=== PATIENT | female | born 1965 | race Caucasian/White ===

== ENCOUNTER → 2018-02-16 | Outpatient (CLI) | payer OTHER ==
[~2018-02-16] MED LIST: ACTOS15 MG PO; ALBU17AE23 IH; ALBU4TAB PO; ALBU8.5H2 IH; CETI10TA17 PO; DICL75TA2 PO; FAMO20TA5 PO; FISH OIL 1,2001 EAC1 PO; FLC1T PO; GBPN100C PO; HUMIRA SQ; IPRA3AMP11 INH; MAGN400T6 PO; METF-380 PO; MNTL10T PO; MONT10TA21 PO; MTF500T PO; MTX2.5T PO; NAPR220T29 PO; NFMET1000; NFPRILOC40 PO; OMEG-90 PO; OMEP20CA12 PO; PRM25T PO; SULF1TAB38 PO; VALS1TAB48 PO; VIT1TABL57 PO
--- NOTE | 2018-02-16 09:53 | Diagnostic Imaging Report ---
PROCEDURE: MR imaging of the brain without contrast. TECHNIQUE: Multiplanar, multisequence MR imaging of the brain was performed without contrast. INDICATION: Headaches. Dizziness. COMPARISON: None. FINDINGS: Examination limited by motion artifact. Minimal nonspecific T2 hyperintensities in the supratentorial white matter. No restricted water diffusion or hemosiderin deposition. Morphology is grossly unremarkable including the major midline structures, sella, posterior fossa and cerebellar pontine angle. No hydrocephalus or extra-axial fluid collections. Normal intracranial flow voids. The orbits are unremarkable on this nondedicated exam. Complete opacification of the left maxillary sinus. Large amount of fluid throughout the right mastoid air cells. Left mastoid is clear. Normal bone marrow signal. IMPRESSION: 1. No acute intracranial MRI findings. There are only minimal nonspecific T2 hyperintensities in the supratentorial white matter of doubtful clinical significance. 2. Complete opacification of the left maxillary sinus. 3. Large right mastoid effusion. Dictated by: Dictated on workstation # [id number]
== END ==
LOC: RAD 08:33
PROVIDERS: ATTEND Family Medicine
DX: J34.89 Other specified disorders of nose and nasal sinuses (principal); H74.8X3 Other specified disorders of middle ear and mastoid, bilateral
CPT/HCPCS: 70551

== ENCOUNTER → 2018-04-17 | Outpatient (CLI) | payer OTHER ==
[~2018-04-17] MED LIST changes: +RT-ALBUTEROL SULF 2.5 MG/3 ML PRE-MIX VIAL INH ONE
== END ==
LOC: RT 11:16
PROVIDERS: ATTEND Nurse Practitioner Family
DX: R06.02 Shortness of breath (principal); Z72.0 Tobacco use
CPT/HCPCS: 94060; 94726; 94729

== ENCOUNTER 2018-04-22 07:15 | Outpatient (CLI) | payer OTHER ==
[~2018-04-22 07:15] MED LIST changes: -RT-ALBUTEROL SULF 2.5 MG/3 ML PRE-MIX VIAL INH ONE
== END 2018-04-22 16:23 | disposition home or self-care (01) ==
LOC: SLEEP 07:15
PROVIDERS: ATTEND Nurse Practitioner Family
DX: G47.33 Obstructive sleep apnea (adult) (pediatric) (principal); R09.02 Hypoxemia; G47.10 Hypersomnia, unspecified; G47.34 Idiopathic sleep related nonobstructive alveolar hypoventilation; E66.01 Morbid (severe) obesity due to excess calories
CPT/HCPCS: 95811

== ENCOUNTER → 2018-06-11 | Outpatient (CLI) | payer OTHER ==
--- NOTE | 2018-06-12 13:58 | Diagnostic Imaging Report ---
Exam: Nuclear medicine thyroid imaging and uptake. Date: June 12, 2018. Indication: Thyroid nodules. Comparison: CT chest September 23, 2010. No additional comparison imaging available. Findings: 206 ?Ci of I-123 was administered. Subsequent scintigraphic images of the thyroid were obtained in multiple projections. 6 and 24-hour thyroid uptake rise were obtained. 4 hour thyroid uptake is calculated at 6.7%. 24-hour thyroid uptake is calculated at 24.6%. Normal range for uptake at 4-6 hours (5-20%). Normal range of uptake at 24 hours (10-35%). In the inferior aspect of the right lobe of the thyroid on the SOLANO projection, there is a probable cold nodule. There is no evidence of iodine avid hot nodule specifically to suggest a benign thyroid nodule. Impression: 1. Probable cold nodule within the inferior aspect of the right lobe of the thyroid. Correlation with current dedicated thyroid ultrasound is needed. If there is an indeterminant or suspicious right thyroid nodule at this location, ultrasound-guided fine-needle aspiration would be recommended. 2. No iodine avid hot nodule to specifically suggest a benign thyroid nodule. 3. Normal thyroid uptake values. Dictated on workstation # [id number]
== END ==
LOC: CARD 10:48
PROVIDERS: ATTEND Otolaryngology Otolaryngology/Facial Plastic Surgery
DX: E04.1 Nontoxic single thyroid nodule (principal)
CPT/HCPCS: 78014

== ENCOUNTER → 2018-06-25 | Day surgery (SDC) | payer OTHER ==
[~2018-06-25] VITALS: Ht 172.7 cm; Wt 139.7 kg
[2018-06-25] VITALS (10 sets, daily range): BP systolic 107–146; BP diastolic 53–83
[~2018-06-25] MED LIST changes: +AMLO2.5T3 PO; +ASPI-999 PO; +CHOL200059 PO; +FAMO20TA3 PO; +FERR-65 PO; +FLUO40CA12 PO; +FLUT1BLS3 IH; +FOLI1TAB24 PO; +FURO40TA4 PO; +GABA-486 PO; +GLIM1TAB PO; +GUAI600T43 PO; +HEParin (CATH LAB) 2,000 ML IV ONE; +IXEK80AU SQ; +LIDOCAINE 1% INJ 20 ML 20 ML VIAL ONE; +METH2.5T PO; +METO-370 PO; +MIDAZOLAM 5 MG/5 ML (VERSED) VIAL ONE; +MOME17SP9 NS; +NS IV 1000 ML 1,000 ML IV SCH; +NS IV 1000 ML 1,000 ML ONE; +OMEP20TA7 PO; +PATIENT MAY USE OWN MEDS, ALL PO SCH; +PIOG15TA67 PO; +POTA10CA43 PO; +RT-ALBUINH INH; +fentaNYL INJECTION 100 MCG/2 ML AMP ONE
--- OUTSIDE RECORDS SUMMARY | 2018-06-25 11:26 | XMS REPORT | Continuity of Care Document ---
Author Author [facility] Organization [facility] Address Unknown Phone Unavailable Allergies Active Description Code Type Severity Reaction Onset Reported/Identified Relationship to Patient Clinical Status Yes LISINOPRIL UNKNOWN UNKNOWN Yes OTHER UNKNOWN UNKNOWN Yes ZOCOR UNKNOWN UNKNOWN Yes ENVIROMENTAL ENVIROMENTAL Unknown N/A 01/31/2010 Yes lisinopril [id number] Drug Allergy Unknown N/A 01/31/2010 Yes OKRA OKRA Unknown N/A 01/31/2010 Yes simvastatin [id number] Drug Allergy Unknown N/A 01/31/2010 Yes Tetanus Vaccines Toxoid [id number] Drug Allergy Unknown N/A 01/31/2010 Yes Tetanus Vaccines and Toxoid [id number] Drug Allergy Unknown N/A 2009 Yes fenofibrate [id number] Drug Allergy Unknown N/A 09/10/2013 Yes rosuvastatin [id number] Drug Allergy Unknown N/A 09/10/2013 Yes TETNUS TETNUS Unknown N/A 09/10/2013 Medications There is no data. Problems Date Dx Coded Attending Type Code Diagnosis Diagnosed By 09/11/2013 ZAINAB HICKS MD Ot 285.9 ANEMIA NOS 09/11/2013 ZAINAB HICKS MD Ot 530.11 REFLUX ESOPHAGITIS 09/11/2013 ZAINAB HICKS MD Ot V16.0 FAMILY HX-GI MALIGNANCY 12/02/2014 SOL DOBSON DO Ot 780.50 SLEEP DISTURBANCE NOS 12/02/2014 SOL DOBSON DO Ot 786.09 RESPIRATORY ABNORM NEC 12/31/2014 SOL DOBSON DO Ot 278.01 12/31/2014 SOL DOBSON DO Ot 305.1 12/31/2014 SOL DOBSON DO Ot 401.9 12/31/2014 SOL DOBSON DO Ot 496 12/31/2014 SOL DOBSON DO Ot 780.54 12/31/2014 OLYA JAMIL, SOL M Ot 786.09 03/11/2015 FABIOLA DRAPER, ZAINAB Marcos Ot V72.84 03/11/2015 OLYA DO, SOL M Ot 278.01 03/11/2015 OLYA DO, SOL M Ot 305.1 03/11/2015 OLYA DO, SOL M Ot 401.9 03/11/2015 STANTON DOBSON DOSON M Ot 496 03/11/2015 OLYA DO, SLO M Ot 780.54 03/11/2015 OLYA DO, SOL M Ot 786.09 03/26/2015 MI DRAPER, GOLDIE A Ot 250.02 03/26/2015 MI DRAPER, GOLDIE A Ot 285.9 03/26/2015 MI DRAPER, GOLDIE A Ot 401.1 03/26/2015 MI DRAPER, GOLDIE A Ot 721.3 03/26/2015 MI DRAPER, GOLDIE A Ot 722.4 04/16/2015 MI DRAPER, GOLDIE A Ot 721.3 09/10/2015 FABIOLA DRAPER, ZAINAB Marcos Ot V72.84 09/10/2015 OLYA JAMIL SOL M Ot 278.01 09/10/2015 OLYA JAMIL SOL M Ot 305.1 09/10/2015 OLYA JAMIL SOL M Ot 401.9 09/10/2015 OLYA JAMIL SOL M Ot 496 09/10/2015 OLYA JAMIL SOL M Ot 780.54 09/10/2015 OLYA JAMIL SOL M Ot 786.09 09/10/2015 MI DRAPER, GOLDIE A Ot 250.02 09/10/2015 MI DRAPER, GOLDIE A Ot 285.9 09/10/2015 MI DRAPER, GOLDIE A Ot 401.1 09/10/2015 MI DRAPER, GOLDIE A Ot 721.3 09/10/2015 MI DRAPER, GOLDIE A Ot 722.4 09/14/2015 FABIOLA DRAPER, ZAINAB Marcos Ot V72.84 09/14/2015 STANTON DOBSON DOSON M Ot 278.01 09/14/2015 OLYA JAMIL, SOL M Ot 305.1 09/14/2015 STANTON DOBSON DOSON M Ot 401.9 09/14/2015 STANTON DOBSON DOSON M Ot 496 09/14/2015 OLYA SOL Grimaldo Ot 780.54 09/14/2015 OLYA JAMIL SOL Grimaldo Ot 786.09 09/14/2015 MI DRAPER, GOLDIE A Ot 250.02 09/14/2015 MI DRAPER, GOLDIE A Ot 285.9 09/14/2015 MI DRAPER, GOLDIE A Ot 401.1 09/14/2015 MI DRAPER, GOLDIE A Ot 721.3 09/14/2015 MI DRAPER, GOLDIE A Ot 722.4 09/14/2015 MI DRAPER, GOLDIE A Ot 721.3 09/17/2015 POLO DRAPER FACC, ALI FACP CCDS Ot E11.9 09/17/2015 POLO DRAPER FACC, ALI FACP CCDS Ot I10 09/17/2015 POLO DRAPER FACC, ALI FACP CCDS Ot J43.8 09/17/2015 POLO DRAPER FACC, ALI FACP CCDS Ot M79.89 09/17/2015 POLO DRAPER FACC, ALI FACP CCDS Ot R06.02 09/17/2015 POLO DRAPER FACC, ALI FACP CCDS Ot Z72.0 09/17/2015 FABIOLA DRAPER, ZAINAB Marcos Ot V72.84 09/17/2015 OLYA JAMIL SOL Grimaldo Ot 278.01 09/17/2015 OLYA JAMIL SOL Grimaldo Ot 305.1 09/17/2015 OLYA JAMIL SOL Grimaldo Ot 401.9 09/17/2015 OLYA JAMIL SOL Grimaldo Ot 496 09/17/2015 OLYA JAMIL SOL Grimaldo Ot 780.54 09/17/2015 OLYA JAMIL SOL Dillan Ot 786.09 09/17/2015 MI DRAPER, GOLDIE A Ot 250.02 09/17/2015 MI DRAPER, GOLDIE A Ot 285.9 09/17/2015 MI DRAPER, GOLDIE A Ot 401.1 09/17/2015 MI DRAPER, GOLDIE A Ot 721.3 09/17/2015 MI DRAPER, GOLDIE A Ot 722.4 09/17/2015 POLO DRAPER FACC, ALI FACP CCDS Ot E11.9 09/17/2015 POLO DRAPER FACC, ALI FACP CCDS Ot I10 09/17/2015 POLO MD FACC, ALI FACP CCDS Ot J43.8 09/17/2015 POLO DRAPER FACC, ORALIA FACP CCDS Ot M79.89 09/17/2015 POLO DRAPER FACC, ORALIA FACP CCDS Ot R06.02 09/17/2015 POLO DRAPER FACC, ORALIA FACP CCDS Ot Z72.0 11/23/2015 FABIOLA DRAPER, ZAINAB Marcos Ot V72.84 EXAM PRE-OPERATIVE NOS 11/23/2015 SOL DOBSON DO Ot 278.01 MORBID OBESITY 11/23/2015 SOL DOBSON DO Ot 305.1 TOBACCO USE DISORDER 11/23/2015 SOL DOBSON DO Ot 401.9 HYPERTENSION NOS 11/23/2015 SOL DOBSON DO Ot 496 CHR AIRWAY OBSTRUCT NEC 11/23/2015 SOL DOBSON DO Ot 780.54 HYPERSOMNIA, UNSPECIFIED 11/23/2015 SOL DOBSON DO Ot 786.09 RESPIRATORY ABNORM NEC 11/23/2015 GOLDIE STARK MD Ot 250.02 DIAB MALLORY WO COMPL, TYPE II OR UNSPEC TY 11/23/2015 GOLDIE STARK MD Ot 285.9 ANEMIA NOS 11/23/2015 GOLDIE STARK MD Ot 401.1 BENIGN HYPERTENSION 11/23/2015 GOLDIE STARK MD Ot 721.3 LUMBOSACRAL SPONDYLOSIS 11/23/2015 GOLDIE STARK MD Ot 722.4 CERVICAL DISC DEGEN 11/23/2015 POLO DRAPER FACC, ORALIA FACP CCDS Ot E11.9 TYPE 2 DIABETES MELLITUS WITHOUT COMPLIC 11/23/2015 POLO DRAPER FACC, ORALIA FACP CCDS Ot I10 ESSENTIAL (PRIMARY) HYPERTENSION 11/23/2015 POLO DRAPER FACC, ORALIA FACP CCDS Ot J43.8 OTHER EMPHYSEMA 11/23/2015 POLO DRAPER FACC, ORALIA FACP CCDS Ot M79.89 OTHER SPECIFIED SOFT TISSUE DISORDERS 11/23/2015 POLO DRAPER FACC, ORALIA FACP CCDS Ot R06.02 SHORTNESS OF BREATH 11/23/2015 POLO DRAPER FACC, ORALIA FACP CCDS Ot Z72.0 TOBACCO USE 11/23/2015 GOLDIE STARK MD Ot 721.3 LUMBOSACRAL SPONDYLOSIS 11/23/2015 POLO DRAPER FACC, ORALIA FACP CCDS Ot E11.9 TYPE 2 DIABETES MELLITUS WITHOUT COMPLIC 11/23/2015 POLO DRAPER FACMellisa, ORALIA FACP CCDS Ot I10 ESSENTIAL (PRIMARY) HYPERTENSION 11/23/2015 POLO DRAPER FACC, ORALIA FACP CCDS Ot J43.8 OTHER EMPHYSEMA 11/23/2015 POLO DRAPER FACC, ORALIA FACP CCDS Ot M79.89 OTHER SPECIFIED SOFT TISSUE DISORDERS 11/23/2015 POLO DRAPER FACC, ORALIA FACP CCDS Ot R06.02 SHORTNESS OF BREATH 11/23/2015 POLO DRAPER FACC, ORALIA FACP CCDS Ot Z72.0 TOBACCO USE 11/25/2015 FABIOLA DRAPER, ZAINAB S Ot V72.84 EXAM PRE-OPERATIVE NOS 11/25/2015 SOL DOBSON DO Ot 278.01 MORBID OBESITY 11/25/2015 SOL DOBSON DO Ot 305.1 TOBACCO USE DISORDER 11/25/2015 SOL DOBSON DO Ot 401.9 HYPERTENSION NOS 11/25/2015 SOL DOBSON DO Ot 496 CHR AIRWAY OBSTRUCT NEC 11/25/2015 SOL DOBSON DO Ot 780.54 HYPERSOMNIA, UNSPECIFIED 11/25/2015 SOL DOBSON DO Ot 786.09 RESPIRATORY ABNORM NEC 11/25/2015 GOLDIE STARK MD Ot 250.02 DIAB MALLORY WO COMPL, TYPE II OR UNSPEC TY 11/25/2015 GOLDIE STARK MD Ot 285.9 ANEMIA NOS 11/25/2015 GOLDIE STARK MD Ot 401.1 BENIGN HYPERTENSION 11/25/2015 GOLDIE STARK MD Ot 721.3 LUMBOSACRAL SPONDYLOSIS 11/25/2015 GOLDIE STARK MD Ot 722.4 CERVICAL DISC DEGEN 11/25/2015 GOLDIE STARK MD Ot 721.3 LUMBOSACRAL SPONDYLOSIS 11/25/2015 POLO DRAPER FACC, ORALIA GALICIAP CCDS Ot E11.9 TYPE 2 DIABETES MELLITUS WITHOUT COMPLIC 11/25/2015 POLO DRAPER FACC, ORALIA FACP CCDS Ot I10 ESSENTIAL (PRIMARY) HYPERTENSION 11/25/2015 POLO DRAPER FACC, ORALIA FACP CCDS Ot J43.8 OTHER EMPHYSEMA 11/25/2015 POLO DRAPER FACC, ORALIA FACP CCDS Ot M79.89 OTHER SPECIFIED SOFT TISSUE DISORDERS 11/25/2015 POLO DRAPER [facility], ALI FACP CCDS Ot R06.02 SHORTNESS OF BREATH 11/25/2015 POLO DRAPER [facility], ALI FACP CCDS Ot Z72.0 TOBACCO USE 11/25/2015 POLO DRAPER [facility], ALI FACP CCDS Ot E11.9 TYPE 2 DIABETES MELLITUS WITHOUT COMPLIC 11/25/2015 POLO DRAPER FAC, ALI FACP CCDS Ot I10 ESSENTIAL (PRIMARY) HYPERTENSION 11/25/2015 POLO DRAPER [facility], ALI FACP CCDS Ot J43.8 OTHER EMPHYSEMA 11/25/2015 POLO DRAPER [facility], ALI FACP CCDS Ot M79.89 OTHER SPECIFIED SOFT TISSUE DISORDERS 11/25/2015 POLO DRAPER [facility], ALI FACP CCDS Ot R06.02 SHORTNESS OF BREATH 11/25/2015 POLO DRAPER [facility], ALI FACP CCDS Ot Z72.0 TOBACCO USE 01/09/2018 Goldie Stark 250.80 DIABETES MELLITUS WITH OTHER SPECIFIED MANIFESTATIONS, TYPE II OR UNSPECIFIED TYPE, NOT STATED UNCONTROLLED 01/09/2018 Goldie Stark 780.79 OTHER MALAISE AND FATIGUE 01/09/2018 Goldie Stark E11.65 TYPE 2 DIABETES MELLITUS WITH HYPERGLYCEMIA 01/09/2018 Goldie Stark R53.83 OTHER FATIGUE 01/09/2018 Goldie Stark 250.80 DIABETES MELLITUS WITH OTHER SPECIFIED MANIFESTATIONS, TYPE II OR UNSPECIFIED TYPE, NOT STATED UNCONTROLLED 01/09/2018 Goldie Stark 719.46 PAIN IN JOINT INVOLVING LOWER LEG 01/09/2018 Goldie Stark 780.79 OTHER MALAISE AND FATIGUE 01/09/2018 Goldie Stark E11.65 TYPE 2 DIABETES MELLITUS WITH HYPERGLYCEMIA 01/09/2018 Goldie Stark M25.561 PAIN IN RIGHT KNEE 01/09/2018 Goldie Stark R53.83 OTHER FATIGUE 01/09/2018 Goldie Stark 250.80 DIABETES MELLITUS WITH OTHER SPECIFIED MANIFESTATIONS, TYPE II OR UNSPECIFIED TYPE, NOT STATED UNCONTROLLED 01/09/2018 Goldie Stark 719.46 PAIN IN JOINT INVOLVING LOWER LEG 01/09/2018 Goldie Stark 780.79 OTHER MALAISE AND FATIGUE 01/09/2018 Mi, Goldie W E11.65 TYPE 2 DIABETES MELLITUS WITH HYPERGLYCEMIA 01/09/2018 MiGoldie W M25.561 PAIN IN RIGHT KNEE 01/09/2018 Mi Goldie W R53.83 OTHER FATIGUE 01/31/2018 FABIOLA DRAPER, ZAINAB Marcos Ot V72.84 EXAM PRE-OPERATIVE NOS 01/31/2018 SOL DOBSON DO Ot 278.01 MORBID OBESITY 01/31/2018 SOL DOBSON DO Ot 305.1 TOBACCO USE DISORDER 01/31/2018 SOL DOBSON DO Ot 401.9 HYPERTENSION NOS 01/31/2018 SOL DOBSON DO Ot 496 CHR AIRWAY OBSTRUCT NEC 01/31/2018 SOL DOBSON DO Ot 780.54 HYPERSOMNIA, UNSPECIFIED 01/31/2018 SOL DOBSON DO Ot 786.09 RESPIRATORY ABNORM NEC 01/31/2018 GOLDIE STARK MD Ot 250.02 DIAB MALLORY WO COMPL, TYPE II OR UNSPEC TY 01/31/2018 GOLDIE STARK MD Ot 285.9 ANEMIA NOS 01/31/2018 GOLDIE STARK MD Ot 401.1 BENIGN HYPERTENSION 01/31/2018 GOLDIE STARK MD Ot 721.3 LUMBOSACRAL SPONDYLOSIS 01/31/2018 GOLDIE STARK MD Ot 722.4 CERVICAL DISC DEGEN 01/31/2018 POLO DRAPER FACC, ORALIA FACP CCDS Ot E11.9 TYPE 2 DIABETES MELLITUS WITHOUT COMPLIC 01/31/2018 POLO DRAPER FACC, ALI FACP CCDS Ot I10 ESSENTIAL (PRIMARY) HYPERTENSION 01/31/2018 POLO DRAPER FACC, ALI FACP CCDS Ot J43.8 OTHER EMPHYSEMA 01/31/2018 POLO DRAPER FACC, ALI FACP CCDS Ot M79.89 OTHER SPECIFIED SOFT TISSUE DISORDERS 01/31/2018 POLO DRAPER FACC, ALI FACP CCDS Ot R06.02 SHORTNESS OF BREATH 01/31/2018 POLO DRAPER FACC, ALI FACP CCDS Ot Z72.0 TOBACCO USE 02/16/2018 ZAINAB HICKS MD Ot V72.84 EXAM PRE-OPERATIVE NOS 02/16/2018 SOL DOBSON DO Ot 278.01 MORBID OBESITY 02/16/2018 SOL DOBSON DO Ot 305.1 TOBACCO USE DISORDER 02/16/2018 SOL DOBSON DO Ot 401.9 HYPERTENSION NOS 02/16/2018 OLYA JAMIL SOL M Ot 496 CHR AIRWAY OBSTRUCT NEC 02/16/2018 SOL DOBSON DO Ot 780.54 HYPERSOMNIA, UNSPECIFIED 02/16/2018 OLYA JAMIL SOL Dillan Ot 786.09 RESPIRATORY ABNORM NEC 02/16/2018 GOLDIE STARK MD Ot 250.02 DIAB MALLORY WO COMPL, TYPE II OR UNSPEC TY 02/16/2018 GOLDIE STARK MD Ot 285.9 ANEMIA NOS 02/16/2018 GOLDIE STARK MD Ot 401.1 BENIGN HYPERTENSION 02/16/2018 GOLDIE STARK MD Ot 721.3 LUMBOSACRAL SPONDYLOSIS 02/16/2018 GOLDIE STARK MD Ot 722.4 CERVICAL DISC DEGEN 02/16/2018 POLO DRAPER FACC, ALI FACP CCDS Ot E11.9 TYPE 2 DIABETES MELLITUS WITHOUT COMPLIC 02/16/2018 POLO DRAPER FACC, ALI FACP CCDS Ot I10 ESSENTIAL (PRIMARY) HYPERTENSION 02/16/2018 POLO DRAPER FACC, ALI FACP CCDS Ot J43.8 OTHER EMPHYSEMA 02/16/2018 POLO DRAPER FACC, ALI FACP CCDS Ot M79.89 OTHER SPECIFIED SOFT TISSUE DISORDERS 02/16/2018 POLO DRAPER FACC, ALI FACP CCDS Ot R06.02 SHORTNESS OF BREATH 02/16/2018 POLO DRAPER FACC, ALI FACP CCDS Ot Z72.0 TOBACCO USE 02/16/2018 GOLDIE STARK MD Ot 721.3 LUMBOSACRAL SPONDYLOSIS 02/16/2018 POLO DRAPER FACC, ALI FACP CCDS Ot E11.9 TYPE 2 DIABETES MELLITUS WITHOUT COMPLIC 02/16/2018 POLO DRAPER FACC, ALI FACP CCDS Ot I10 ESSENTIAL (PRIMARY) HYPERTENSION 02/16/2018 POLO DRAPER FACC, ALI FACP CCDS Ot J43.8 OTHER EMPHYSEMA 02/16/2018 POLO DRAPER FACC, ALI FACP CCDS Ot M79.89 OTHER SPECIFIED SOFT TISSUE DISORDERS 02/16/2018 POLO GALICIAC, ALI FACP CCDS Ot R06.02 SHORTNESS OF BREATH 02/16/2018 POLO DRAPER FACC, ALI FACP CCDS Ot Z72.0 TOBACCO USE 02/18/2018 GOLDIE STARK MD A Ot H74.8X3 OTH DISRD OF MIDDLE EAR AND MASTOID, RICKY 02/18/2018 MI DRAPER, GOLDIE Guerrero Ot J34.89 OTHER SPECIFIED DISORDERS OF NOSE AND NA 04/19/2018 EN RAHMAN APRN Ot R06.02 SHORTNESS OF BREATH 04/19/2018 EN RAHMAN APRN Ot Z72.0 TOBACCO USE 04/24/2018 EN RAHMAN APRN Ot E66.01 MORBID (SEVERE) OBESITY DUE TO EXCESS CA 04/24/2018 EN RAHMAN DIRECTOR ORANGE Ot G47.10 HYPERSOMNIA, UNSPECIFIED 04/24/2018 EN RAHMAN APRN Ot G47.33 OBSTRUCTIVE SLEEP APNEA (ADULT) (PEDIATR 04/24/2018 EN RAHMAN APRN Ot G47.34 IDIO SLEEP RELATED NONOBSTRUCTIVE ALVEOL 04/24/2018 EN RAHMAN APRN Ot R09.02 HYPOXEMIA 04/29/2018 EN RAHMAN APRN Ot R06.02 SHORTNESS OF BREATH 04/29/2018 EN RAHMAN APRN Ot Z72.0 TOBACCO USE 06/12/2018 MAGDALENO DRAPER, HOMA Acosta Ot E04.1 NONTOXIC SINGLE THYROID NODULE Procedures There is no data. Results Test Result Range Hepatic Panel - 06/13/16 08:30 Albumin 4.2 g/dL 3.6-5.1 ALP 69 U/L 35-130 ALT 28 U/L 6-45 AST 17 U/L 2-40 DBil 0.1 mg/dL 0.0-0.2 GGT 35 U/L 5-40 Globulin 2.5 g/dL 2.3-3.5 TBil 0.2 mg/dL 0.2-1.2 TP 6.7 g/dL 6.0-8.3 Lipid Panel - 08/16/16 11:30 C/HDL 4.1 3.7-6.7 Cholesterol 203 mg/dL 100-240 HDL 49 mg/dL 30-85 LDL-Calculated 98 mg/dL 0-100 Trig 279 mg/dL 35-160 VLDL 56 mg/dL 0-42 Microalbumin - 08/16/16 11:30 Microalb 475.0 mg/L 0.0-20.0 Microalbumin - 02/28/17 11:28 Microalb 918.0 mg/L 0.0-20.0 BMP - 01/09/18 09:32 Anion Gap 20 6-14 BUN 16 mg/dL 5-25 Calcium 9.7 mg/dL 8.3-10.4 Chloride 101 mmol/L 95-114 CO2 25 mEq/L 22-33 Creat 0.78 mg/dL 0.50-1.50 eGFR 77 mL/min/1.73m2 >59 Glucose 182 mg/dL 70-110 Osmo 296 280-295 Potassium 4.5 mmol/L 3.5-5.3 Sodium 141 mmol/L 134-[address] Spotted Fev,IgG - 01/09/18 09:37 RMSF, IGG, EIA NEGATIVE NEGATIVE Ehrlichia Ab Panel - 01/09/18 09:37 E. CHAFFEENSIS (HME) IGG TITER NEGATIVE NEG:<1:64 E. CHAFFEENSIS (HME) IGM TITER NEGATIVE NEG:<1:20 HGE IGG TITER NEGATIVE NEG:<1:64 HGE IGM TITER NEGATIVE NEG:<1:20 Ehrlichia Ab Panel - 01/09/18 09:37 E. chaffeensis (HME) IgG Titer Negative Neg:<1:64 E. chaffeensis (HME) IgM Titer Negative Neg:<1:20 HGE IgG Titer Negative Neg:<1:64 HGE IgM Titer Negative Neg:<1:20 Am[address] Spotted Fev, IgG, Qn - 01/09/18 09:37 RMSF, IgG, EIA Negative Negative Amilcar Azn Spotted Fever, IgM - 01/09/18 09:37 Amilcar Azn Spotted Fever, IgM 0.08 index 0.00-0.89 Sed Rate - 01/30/18 15:16 Sed Rate 13 mm/hr 9-15 Free T4 - 06/04/18 10:56 Free T4 1.16 ng/dL 0.81-1.61 Thyroid Peroxidase (TPO) Ab - 06/04/18 10:56 THYROID PEROXIDASE (TPO) AB 13 IU/ML 0-34 Thyroid Stim Immunoglobulin - 06/04/18 10:56 THYROID STIM IMMUNOGLOBULIN <0.10 IU/L 0.00-0.55 Thyroid Stim Immunoglobulin - 06/04/18 10:56 Thyroid Stim Immunoglobulin <0.10 IU/L 0.00-0.55 Thyroid Peroxidase (TPO) Ab - 06/04/18 10:56 Thyroid Peroxidase (TPO) Ab 13 IU/mL 0-34 Encounters ACCT No. Visit Date/Time Discharge Status Pt. Type Provider Facility Loc./Unit Complaint [id number] 06/12/2018 11:00:00 06/12/2018 23:59:59 CLS Preadmit HOMA CASTRO MD [facility] CARD [id number] 06/11/2018 10:48:00 06/11/2018 23:59:59 CLS Outpatient HOMA CASTRO MD [facility] CARD MULTIPLE NODULES [id number] 04/22/2018 07:15:00 04/22/2018 16:23:00 DIS Outpatient EN RAHMAN APRN [facility] SLEEP G47.9 SLEEP DISORDER [id number] 04/17/2018 11:16:00 04/17/2018 23:59:59 CLS Outpatient EN RAHMAN APRN [facility] RT SOB R06.02 [id number] 02/16/2018 08:33:00 02/16/2018 23:59:59 CLS Outpatient GOLDIE STARK MD [facility] RAD FREQUENT ASHBY'S [id number] 09/16/2015 14:33:00 09/16/2015 23:59:59 CLS Outpatient ORALIA CUELLAR MD, FACC, FACP CCDS [facility] CARD SHORTNESS OF BREATH,HTN [id number] 09/14/2015 11:35:00 09/14/2015 23:59:59 CLS Outpatient ORALIA CUELLAR MD, FACC, FACP CCDS [facility] CARD SHORTNESS OF BREATH,HTN [id number] 03/30/2015 10:20:00 03/30/2015 23:59:59 CLS Outpatient GOLDIE STARK MD [facility] RAD LBP,F/U UTI [id number] 03/11/2015 10:32:00 03/11/2015 23:59:59 CLS Outpatient GOLDIE STARK MD [facility] RAD DM,HTN,ANEMIA,LBP/ARM PAIN [id number] 12/09/2014 08:10:00 12/09/2014 23:59:59 CLS Outpatient SOL DOBSON DO [facility] RT COPD [id number] 12/02/2014 07:59:00 12/02/2014 15:35:00 DIS Outpatient SOL DOBSON DO [facility] SLEEP VEE,SNORING, CHOKING, GASPING [id number] 09/11/2013 07:40:00 09/11/2013 10:35:00 DIS Outpatient ZAINAB HICKS MD [facility] SDC ANEMIA [id number] 09/10/2013 07:36:00 09/10/2013 23:59:59 CLS Outpatient ZAINAB HICKS MD [facility] PREOP ANEMIA [id number] 06/04/2018 10:53:00 06/04/2018 23:59:00 DIS Outpatient Homa Castro [id number] 05/01/2018 10:00:00 05/01/2018 23:59:00 DIS Outpatient Mi Goldie [id number] 01/30/2018 15:09:00 01/30/2018 23:59:00 DIS Outpatient Mi Goldie [id number] 01/12/2018 10:29:00 01/12/2018 23:59:00 DIS Outpatient Mi Goldie [id number] 01/09/2018 09:28:00 01/09/2018 23:59:00 DIS Outpatient Goldie Stark [id number] 02/28/2017 15:00:00 02/28/2017 23:59:00 DIS Outpatient Mi, Goldie [id number] 08/16/2016 12:29:00 08/16/2016 23:59:00 DIS Outpatient Mi, Goldie [id number] 06/13/2016 14:46:00 06/13/2016 23:59:00 DIS Outpatient Raj Reina [id number] 01/22/2018 17:14:00 Document Registration [id number] 06/06/2018 07:19:00 Document Registration [id number] 01/15/2018 03:12:00 Document Registration
[2018-06-25 11:52] LABS: HEMOGLOBIN 13.3 G/DL (11.5-16.0); RED BLOOD COUNT 3.96 10^6/uL (4.35-5.85); RED CELL DISTRIBUTION WIDTH 14.7 % (10.0-14.5); WHITE BLOOD COUNT 9.3 10^3/uL (4.3-11.0)
[2018-06-25 12:07] LABS: INR 0.9 (0.8-1.4); PROTHROMBIN TIME PATIENT 12.1 SEC (12.2-14.7)
[2018-06-25 12:17] LABS: ALANINE AMINOTRANSFERASE 21 U/L (0-55); ALBUMIN 4.3 GM/DL (3.2-4.5); ALKALINE PHOSPHATASE 75 U/L (40-136); BILIRUBIN,TOTAL 0.3 MG/DL (0.1-1.0); BUN/CREATININE RATIO 21; CALCIUM 9.9 MG/DL (8.5-10.1); CARBON DIOXIDE 26 MMOL/L (21-32); CHLORIDE 104 MMOL/L (98-107); CHOLESTEROL 213 MG/DL (< 200); CREATININE SERUM 0.78 MG/DL (0.60-1.30); GFR ESTIMATED > 60; GLUCOSE 116 MG/DL (70-105); HDL CHOLESTEROL 47 MG/DL (40-60); POTASSIUM 4.6 MMOL/L (3.6-5.0); SODIUM 143 MMOL/L (135-145); TOTAL PROTEIN 7.3 GM/DL (6.4-8.2); TRIGLYCERIDES 458 MG/DL (<150)
--- NOTE | 2018-06-25 13:08 | Cardiac Procedure Note-CS/ASA ---
Pre-Procedure Note Pre-Op Procedure Note H&P Reviewed The H&P was reviewed, patient examined and no changes noted. Date H&P Reviewed: Jun 25, 2018 Time H&P Reviewed: 13:08 Conscious Sedation Pre-Proced Time 13:08 ASA Score 3 For ASA 3 and 4: Consider anesthesia and medical clearance. Also, for patients with a history of failed moderate sedation consider anesthesia. Airway Lungs Heart ASA score ASA 1: a normal healthy patient ASA 2: a patient with a mild systemic disease (mid diabetes, controlled hypertension, obesity ASA 3: a patient with a severe systemic disease that limits activity (angina , COPD, prior Myocardial infarction) ASA 4: a patient with an incapacitating disease that is a constant threat to life (CHF, renal failure) ASA 5: a moribund patient not expected to survive 24 hrs. (ruptured aneurysm) ASA 6: a declared brain patient whose organs are being harvested. For emergent operations, add the letter E after the classification Mallampati Classification Grade 3 Sedation Plan Analgesia, Amnesia, Plan communicated to team members, Discussed options with patient/fam, Discussed risks with patient/fam The patient is an appropriate candidate to undergo the planned procedure, sedation, and anesthesia. The patient immediately re-assessed prior to indication. ORALIA CUELLAR MD FACP FAC CCDS Jun 25, 2018 13:08
--- NOTE | 2018-06-25 14:22 | Discharge Inst-Cardiology ---
Discharge Inst-Cardiac Discharge Medications New Medications: Aspirin (Aspirin) 81 Mg Tab.chew 81 MG PO DAILY, #90 TAB 3 Refills Continued Medications: Albuterol Sulfate (Ventolin Hfa) 1 Puff Puff 2 PUFF INH QID PRN for WHEEZING, PUFF 1 PUFF = 90 MCG Amlodipine Besylate (Amlodipine Besylate) 2.5 Mg Tablet 2.5 MG PO DAILY, TAB Cetirizine Hcl (Cetirizine Hcl) 10 Mg Tablet 10 MG PO DAILY Cholecalciferol (Vitamin D3) (Vitamin D-3) 2,000 Unit Tablet 2000 UNIT PO DAILY, TAB Famotidine (Acid Hair Preparer (FAMOTIDINE)) 20 Mg Tablet 20 MG PO BID, TAB Ferrous Sulfate (Feosol) 325 Mg Tablet 325 MG PO DAILY, TAB Fluoxetine HCl (Prozac) 40 Mg Capsule 40 MG PO DAILY, CAP Fluticasone/Umeclidin/Vilanter (Trelegy Ellipta 100-62.5-25) 1 Each Blst.w.dev 1 EACH IH DAILY Folic Acid (Folic Acid) 1 Mg Tablet 1 MG PO DAILY, TAB Furosemide (Furosemide) 40 Mg Tablet 40 MG PO DAILY, TAB Gabapentin (Gabapentin) 100 Mg Capsule 300 MG PO DAILY, CAP Gabapentin (Gabapentin) 100 Mg Capsule 100 MG PO NOON, CAP Gabapentin (Gabapentin) 100 Mg Capsule 300 MG PO HS, CAP Glimepiride (Glimepiride) 1 Mg Tablet 1 MG PO BID, TAB Guaifenesin (Mucinex) 600 Mg Tab.er.12h 600 MG PO Q12H, TAB Ixekizumab (Taltz Autoinjector) 80 Mg/1 Ml Auto.injct 80 MG SQ O2TGVRT, ML Magnesium Oxide (Mag Ox 400) 400 Mg Tablet 1 EACH PO DAILY WITH FOOD, TAB Methotrexate Sodium (Methotrexate) 2.5 Mg Tablet 2.5 MG PO QWEEKLY, TAB Metoprolol Succinate (Metoprolol Succinate) 50 Mg Tab.er.24h 50 MG PO DAILY, TAB Mometasone Furoate (Mometasone Furoate) 17 Gm Depauw.pump 2 SPRAY NS DAILY, ML Omeprazole (Omeprazole) 20 Mg Tablet.dr 20 MG PO DAILY, TAB Pioglitazone HCl (Pioglitazone HCl) 15 Mg Tablet 15 MG PO BID, TAB Potassium Chloride (Potassium Chloride) 10 Meq Capsule.er 10 MEQ PO DAILY, CAP Discontinued Medications: Metformin Hcl (Metformin 1000 Mg) 1,000 Mg Tablet 1 EACH PO BID Metformin Hcl (Metformin 500 Mg) 500 Mg Tablet 1 EACH PO WITH LUNCH Naproxen Sodium (Naproxen) 220 Mg Tablet 220 MG PO BID, TAB Patient Instructions Patient Instructions: Hold metformin in until the evening of 06/27/18, then resume previous home dose Orders-Post D/C & Referrals Pneu Vac Indicated: Yes ORALIA CUELLAR MD FACP FACC CCDS Jun 25, 2018 14:22
--- NOTE | 2018-06-25 14:22 | Discharge Inst-Post CATH ---
Discharge Inst-CATH Post Cardiac Cath D/C Inst Follow Up/Plan F/u with Dr Lazaro in 2 weeks Hold metformin in until the evening of 06/27/18, then resume previous home dose CARDIAC CATH DISCHARGE INSTRUCTIONS *Hold Metformin for 48 hours post heart cath. ACTIVITY * Go Home directly and rest. * Limit activity of the leg (or wrist if it was used) for 7 days including aerobics, swimming, jogging, bicycling, etc. * Restrict stair-climbing for 7 days if possible, if not, climb up with your non -cath leg, then bring together on the same step. * Avoid lifting, pushing, pulling or excessive movement of the affected extremity for 7 days. * Customary sexual activity may be resumed after 2 days-use caution not to use a position that strains or causes pain to the affected extremity. * No driving for 24 hours. * NO SMOKING. * Avoid straining for bowel movements for 7 days. * Gentle walking on level ground is allowed. * Returning to work will depend on the type of procedure and the results. Your doctor will discuss this with you. CALL YOUR DOCTOR FOR ANY OF THE FOLLOWING: *If bleeding from the puncture site occurs- Apply gentle pressure to site with clean cloth and call your doctor or EMS. * If a knot or lump forms under the skin, increases in size, or causes pain. * If bruising appears to be worsening or moving further down your leg instead of disappearing. * Temperature above 101 F. CARE OF YOUR GROIN INCISION; * Bruising or purple discoloration of the skin near the puncture site is common. * You may shower only, no bathtub bathing for 5 days. Be careful to avoid slipping as your leg may feel stiff. * If a closure device was used on your femoral artery, please see the attached guide regarding care of the device and your leg. * Leave the dressing on, until removed by office staff. CARE OF YOUR WRIST INCISION; * Bruising or purple discoloration of the skin near the puncture site is common. * You may shower. * DO NOT submerge wrist. * Leave dressing on, until removed by office staff.. ORALIA LAZARO MD [facility] Jun 25, 2018 14:22
--- NOTE | 2018-06-25 16:43 | CARDIAC CATHETERIZATION ---
DATE OF SERVICE: 06/25/2018 CARDIAC CATHETERIZATION REPORT HISTORY OF PRESENT ILLNESS: The patient is a 53-year-old lady who has multiple coronary artery disease risk factors and has been experiencing increasing shortness of breath and chest discomfort that is suggestive of new onset of angina. Cardiac catheterization was carried out today after having obtained an informed consent. PROCEDURE: She was brought to the cardiac catheterization laboratory in a fasting state. Right groin was prepared and draped in the usual sterile fashion. A 1% lidocaine for local anesthesia. Modified Seldinger technique was used to advance a 5-Urdu sheath in the right femoral artery. Angiography of the right femoral artery was carried out through the sheath. A 5-Urdu JL4 catheter was used for left coronary angiography, 5-Urdu JR4 catheter was used for right coronary angiography. A 5-Urdu pigtail catheter was used for left heart catheterization, left ventricular angiography. Pigtail catheter was pulled back and positioned at the aortic arch. Aortic arch angiography was performed. Pigtail catheter was removed. Mynx was used to achieve hemostasis following sheath removal. She tolerated the procedure well. HEMODYNAMICS: Left ventricular end-diastolic pressure following coronary angiography was 15 mmHg. There was no significant pressure gradient on pullback across the aortic valve. Ascending aortic pressure was 109/63 with a mean of 62 mmHg. CORONARY ANGIOGRAPHY: Diffuse coronary calcification is seen. Left main coronary artery is free of significant disease. Left anterior descending artery has mild to moderate diffuse plaques and calcification. Left circumflex artery is small and nondominant and does not exhibit significant disease. Right coronary artery is large and dominant and has diffuse mild to moderate plaques and mid vessel calcification. LEFT VENTRICULAR ANGIOGRAPHY: Left ventricular angiography was carried out in the right anterior oblique projection. Global left ventricular systolic function is well preserved. Left ventricular ejection fraction approximately 50%. AORTIC ARCH ANGIOGRAPHY: Aortic arch angiography did not indicate any significant thoracic aortic aneurysm or dissection. Neck arteries, to the extent visualized, do not exhibit any significant stenoses. CONCLUSIONS: 1. Mild to moderate diffuse coronary artery disease. 2. Well-preserved global left ventricular systolic function with ejection fraction approximately 50%. 3. Mild elevation of left ventricular end-diastolic pressure. DISCUSSION AND RECOMMENDATIONS: Based on results of the study, it appears appropriate to continue a conservative approach. Risk factor modification is advised. Outpatient followup is advised. Job ID: [id number] DocumentID: [id number] Dictated Date: 06/25/2018 13:48:04 Park Warden Date: 06/25/2018 16:42:44 Dictated By: ORALIA CUELLAR MD, MA, FACP, FACC, MTDD
== END | disposition home or self-care (01) ==
LOC: CATH 11:14 → SDC 14:00
PROVIDERS: ATTEND Internal Medicine Cardiovascular Disease
DX: I25.10 Atherosclerotic heart disease of native coronary artery without angina pectoris (principal); J44.9 Chronic obstructive pulmonary disease, unspecified; E11.9 Type 2 diabetes mellitus without complications; G47.10 Hypersomnia, unspecified; I10 Essential (primary) hypertension; R09.02 Hypoxemia; G47.33 Obstructive sleep apnea (adult) (pediatric); R06.83 Snoring; R60.9 Edema, unspecified; Z72.0 Tobacco use; R91.8 Other nonspecific abnormal finding of lung field; L40.50 Arthropathic psoriasis, unspecified
CPT/HCPCS: 36221; 36415; 36430; 80053; 80061; 85027; 85610; 85730; 87081; 93458

== ENCOUNTER → 2018-07-03 | Outpatient (CLI) | payer OTHER ==
[~2018-07-03] MED LIST changes: -HEParin (CATH LAB) 2,000 ML IV ONE; -LIDOCAINE 1% INJ 20 ML 20 ML VIAL ONE; -MIDAZOLAM 5 MG/5 ML (VERSED) VIAL ONE; -NS IV 1000 ML 1,000 ML IV SCH; -NS IV 1000 ML 1,000 ML ONE; -PATIENT MAY USE OWN MEDS, ALL PO SCH; -fentaNYL INJECTION 100 MCG/2 ML AMP ONE
== END ==
LOC: CARD 07:42
PROVIDERS: ATTEND Internal Medicine Cardiovascular Disease
DX: R07.89 Other chest pain (principal); R06.09 Other forms of dyspnea; R00.2 Palpitations; Z72.0 Tobacco use
CPT/HCPCS: 93225; 93226

== ENCOUNTER → 2018-07-04 | Outpatient (CLI) | payer OTHER ==
--- NOTE | 2018-07-04 16:09 | Diagnostic Imaging Report ---
INDICATION: Ultrasound guidance. FINDINGS: Limited ultrasound images were provided for Dr. Castro during thyroid biopsy. IMPRESSION: Ultrasound guidance as described. Dictated by: Dictated on workstation # [id number]
== END ==
LOC: RAD 09:32
PROVIDERS: ATTEND Otolaryngology Otolaryngology/Facial Plastic Surgery
DX: E04.1 Nontoxic single thyroid nodule (principal)
CPT/HCPCS: 36415; 76942; 84443

== ENCOUNTER → 2018-08-20 | Outpatient (CLI) | payer OTHER ==
[~2018-08-20] MED LIST changes: -AMLO2.5T3 PO; +AMLO2.5T4 PO
== END ==
LOC: RAD 11:52
PROVIDERS: ATTEND Nurse Practitioner Family
DX: I70.213 Atherosclerosis of native arteries of extremities with intermittent claudication, bilateral legs (principal); I10 Essential (primary) hypertension; G47.33 Obstructive sleep apnea (adult) (pediatric); F17.200 Nicotine dependence, unspecified, uncomplicated
CPT/HCPCS: 93923

== ENCOUNTER 2018-08-26 07:57 | Outpatient (RCR) | payer OTHER ==
--- NOTE | 2018-08-26 09:19 | Pulmonary Rehab Eval/Txmt Plan ---
Pulmonary Rehab Initial Eval Information Paper Evaluation Completed: Yes Pulmonary Rehab Treatment Plan Treatment P Treatment Periord: Initial Diagnosis Diagnosis: J44.9 COPD Date: Aug 26, 2018 Barriers to Learning Barriers: None Assessment/Problems Exercise: Deconditioning, Decreased Exer Tolerance, No Regular Exercise, Sedentary Type: AEROBIC Frequency: 2 X'S PER WEEK Duration: 1 HR CLASS, EXERCISE PER PT'S TOLERANCE Barriers to Exercise: RIGHT LEG AND KNEE PAIN (PAST INJURY) Initial MET Level: 2 Aerobic Exercise/Goals Freq: time per week minus [place]: 2 MET Level=: 2 Type: Arm Ergometry, Bike, Scifi/Nustep, Treadmill SHEREEN COOK DO Aug 26, 2018 09:19
== END 2018-11-24 | disposition home or self-care (01) ==
LOC: RT 07:57
PROVIDERS: ATTEND Nurse Practitioner Family
DX: J44.9 Chronic obstructive pulmonary disease, unspecified (principal)
CPT/HCPCS: 99211

== ENCOUNTER → 2022-12-15 | Outpatient (CLI) | payer OTHER ==
[~2022-12-15] MED LIST changes: -FOLI1TAB24 PO; +FOLI1TAB33 PO; -GLIM1TAB PO; +GLIM1TAB4 PO; -METO-370 PO; +METO50TA7 PO; +MOME17SP11 NS; -MOME17SP9 NS; +OMEP20TA56 PO; -OMEP20TA7 PO; -POTA10CA43 PO; +POTA10CA44 PO
== END ==
LOC: CARD 10:47
PROVIDERS: ATTEND Internal Medicine Cardiovascular Disease
DX: I35.8 Other nonrheumatic aortic valve disorders (principal)
CPT/HCPCS: 93306

== ENCOUNTER → 2022-12-19 | Outpatient (CLI) | payer OTHER ==
[~2022-12-19] VITALS: Ht 165 cm; Wt 131.0 kg
[~2022-12-19] MED LIST changes: +CATHETER FLUSH 10 ML SYR IVP PRN; +REGADENOSON 0.4 MG/5 ML SYR (LEXISCAN) IV ONE
[2022-12-19 09:00] VITALS: BP 139/68
--- NOTE | 2022-12-19 22:11 | STRESS TEST ---
DATE OF SERVICE: 12/19/2022 RESTING AND POST REGADENOSON TECHNETIUM-99M TETROFOSMIN SPECT CT IMAGING ORDERING PHYSICIAN: Dr. Lazaro. PRIMARY SURGEON: Dr. Lopez. CLINICAL DIAGNOSIS: Coronary artery disease. Baseline images were carried out after injection of 10.7 mCi of technetium-99m tetrofosmin. This was followed by 0.4 mg regadenoson and 31.1 mCi of technetium-99m tetrofosmin for stress imaging. The electrocardiogram showed sinus rhythm at baseline. It did not change significantly with regadenoson infusion. The patient tolerated the procedure well. Review of images at rest and following stress does not indicate any significant perfusion defects consistent with significant myocardial ischemia or infarction. Gated images show normal global left systolic function with normal regional wall motion. Left ventricular ejection fraction is calculated to be 68%. CONCLUSIONS: 1. No evidence of any significant myocardial ischemia or infarction on this study. 2. Normal regional wall motion. 3. Normal global left ventricular systolic function with a calculated ejection fraction 68%. Job ID: [id number] DocumentID: [id number] Dictated Date: 12/19/2022 20:07:38 Ancillary Services Manager Therapy Date: 12/19/2022 22:08:00 Dictated By: ORALIA LAZARO MD; STEPHANIE; FACP; FACC;
== END ==
LOC: CARD 07:13
PROVIDERS: ATTEND Internal Medicine Cardiovascular Disease
DX: I25.10 Atherosclerotic heart disease of native coronary artery without angina pectoris (principal)
CPT/HCPCS: 78452; 93017; A9502

== ENCOUNTER → 2023-06-21 | Outpatient (CLI) | payer OTHER ==
[~2023-06-21] MED LIST changes: -CATHETER FLUSH 10 ML SYR IVP PRN; +FAMO-356 PO; -FAMO20TA3 PO; -POTA10CA44 PO; +POTA10CA84 PO; -REGADENOSON 0.4 MG/5 ML SYR (LEXISCAN) IV ONE
--- NOTE | 2023-06-21 11:31 | Diagnostic Imaging Report ---
PROCEDURE: US Thyroid. TECHNIQUE: Multiple real-time grayscale images were obtained of the thyroid in various projections. INDICATION: Thyroid nodule followup. Thyroid gland is somewhat prominent measuring 5.4 x 2.4 x 2.5 cm in the right lobe and 5.9 x 2.7 x 2.5 cm on the left. Solid-appearing nodule in the midportion of the right lobe reaches 1.8 x 1.5 x 1.7 cm with mild heterogeneous appearance. There is no evidence of posterior acoustic shadow or internal calcification. Margins are smooth. There is a similar solid-appearing nodule measuring 2.1 x 1.8 x 1.8 cm in the midportion of the left lobe. Again there is no evidence of internal calcification or irregular margins. IMPRESSION: Thyroid category 3 nodules in both lobes of the thyroid gland. Short-term ultrasound followup would be useful to document ongoing stability. Dictated by: Dictated on workstation # [id number]
== END ==
LOC: RAD 08:15
PROVIDERS: ATTEND Family Medicine
DX: E04.2 Nontoxic multinodular goiter (principal)
CPT/HCPCS: 76536